=== PATIENT | female | born 1995 | race American Indian/Alaskan Native ===

== ENCOUNTER 2019-09-19 17:01 | Emergency (ER) | payer SELFPAY ==
--- NOTE | 2019-09-19 17:57 | Emergency Department Report ---
Blank Doc - Documentation Documentation: 24-year-old female that presents with abdominal pain, N/V, headache, dizzines, body aches, tachycardia. This initial assessment/diagnostic orders/clinical plan/treatment(s) is/are subject to change based on patient's health status, clinical progression and re- assessment by fellow clinical providers in the ED. Further treatment and workup at subsequent clinical providers discretion. Patient/guardians urged not to elope from the ED as their condition may be serious if not clinically assessed and managed. Initial orders include: 1- Patient sent to [facility] for further evaluation and treatment 2- labs 3- UA
[2019-09-19] MEDS ORDERED: ONDANSETRON 4 MG/2 ML INJ IV ONE (18:29)
[2019-09-19] MEDS ORDERED: SODIUM CHLORIDE 0.9% 1000 ML 1,000 ML IV ONE ×2 (18:29→20:31)
[2019-09-19] MEDS ORDERED: IBUPROFEN 800 MG TAB PO ONE (18:30)
--- NOTE | 2019-09-19 18:34 | Emergency Department Report ---
ED Fever HPI - General Chief Complaint: Headache Stated Complaint: STOMACH, VOMITTING Time Seen by Provider: 09/19/19 17:56 Source: patient Exam Limitations: no limitations - History of Present Illness Initial Comments: Ms. Shepherd is a 24-year-old female without significant past medical history who presents with 4 days of fever headache stomachache chills. She feels dehydrated. She denies cough. She denies shortness of breath. She denies sore throat. She works at [employer]. Unknown sick contacts. No recent travel. She lives with 3 children. Mild diffuse headache. Diffuse crampy lower abdominal pain left lower quadrant greater than right lower quadran t She is concerned for . August 07 first day of LMP. She has 3 previous pregnancies all vaginal delivery.. Timing/Duration: other (4 days) Fever Severity/Quality: greater than 102 F Associated Symptoms: abdominal pain, headache ED Review of Systems ROS: Stated complaint: STOMACH, VOMITTING Other details as noted in HPI Comment: All other systems reviewed and negative Constitutional: fever, malaise Respiratory: denies: cough, shortness of breath Cardiovascular: denies: chest pain Gastrointestinal: abdominal pain, nausea Neurological: headache ED Past Medical Hx - Past Medical History Previous Medical History?: No - Surgical History Past Surgical History?: Yes Additional Surgical History: Left leg surgery - Social History Smoking Status: Never Smoker Substance Use Type: None - Medications Home Medications: Home Medications Medication Instructions Recorded Confirmed Last Taken Type Nitrofurantoin Rabun/M-Cryst 100 mg PO Q12HR 10 Days #20 capsule 09/20/19 Unknown Rx [Macrobid CAP] Promethazine [Phenergan] 25 mg PO Q6HR PRN #10 tab 09/20/19 Unknown Rx ED Physical Exam - General Limitations: No Limitations General appearance: alert, in no apparent distress - Head Head exam: Present: atraumatic, normocephalic - Eye Eye exam: Present: normal appearance - ENT ENT exam: Present: normal orophraynx, mucous membranes moist - Neck Neck exam: Present: normal inspection, full ROM - Respiratory Respiratory exam: Present: normal lung sounds bilaterally. Absent: respiratory distress, wheezes, rales, rhonchi - Cardiovascular Cardiovascular Exam: Present: normal rhythm, tachycardia, normal heart sounds. Absent: systolic murmur, diastolic murmur, rubs, gallop - GI/Abdominal GI/Abdominal exam: Present: soft. Absent: distended, tenderness, guarding, rebound - Extremities Exam Extremities exam: Present: normal inspection - Neurological Exam Neurological exam: Present: alert, oriented X3 - Psychiatric Psychiatric exam: Present: normal affect, normal mood - Skin Skin exam: Present: warm, dry, intact, normal color. Absent: rash ED Course Vital Signs 09/19/19 09/19/19 09/19/19 17:11 17:57 18:19 Temperature 98.6 F 103.1 F H Pulse Rate 125 H 125 H Respiratory 18 Rate Blood Pressure 118/70 118/70 Blood Pressure [Right] O2 Sat by Pulse 100 100 100 Oximetry 09/19/19 09/19/19 09/19/19 18:20 18:30 18:45 Temperature 102.2 F H Pulse Rate 109 H 114 H Respiratory 30 H 34 H 26 H Rate Blood Pressure 123/78 118/66 Blood Pressure 114/76 [Right] O2 Sat by Pulse 98 100 99 Oximetry 09/19/19 09/19/19 09/19/19 18:50 19:00 19:16 Temperature Pulse Rate 112 H 110 H Respiratory 30 H 26 H 29 H Rate Blood Pressure 118/66 117/71 Blood Pressure [Right] O2 Sat by Pulse 100 98 Oximetry 09/19/19 09/19/19 09/19/19 19:30 19:46 20:00 Temperature Pulse Rate 104 H 106 H 105 H Respiratory 21 25 H 22 Rate Blood Pressure 105/61 105/61 105/57 Blood Pressure [Right] O2 Sat by Pulse 99 98 Oximetry 09/19/19 09/19/19 09/19/19 20:16 20:30 20:46 Temperature Pulse Rate 99 H 94 H 94 H Respiratory 35 H 29 H 27 H Rate Blood Pressure 105/57 100/55 100/55 Blood Pressure [Right] O2 Sat by Pulse 98 99 98 Oximetry 09/19/19 09/19/19 09/19/19 21:00 21:16 21:30 Temperature Pulse Rate 97 H 94 H 92 H Respiratory 19 27 H 26 H Rate Blood Pressure 100/62 100/62 100/54 Blood Pressure [Right] O2 Sat by Pulse 98 Oximetry 09/19/19 09/19/19 09/19/19 21:46 22:00 22:16 Temperature Pulse Rate 92 H 93 H 93 H Respiratory 25 H 25 H 29 H Rate Blood Pressure 100/54 90/55 90/55 Blood Pressure [Right] O2 Sat by Pulse 99 99 100 Oximetry 09/19/19 22:30 Temperature Pulse Rate 90 Respiratory 26 H Rate Blood Pressure 93/54 Blood Pressure [Right] O2 Sat by Pulse 100 Oximetry ED Medical Decision Making - Lab Data Result diagrams: 09/19/19 18:36 09/19/19 18:36 Laboratory Results - last 24 hr 09/19/19 09/19/19 09/19/19 18:20 18:36 18:36 WBC 15.6 H RBC 4.58 Hgb 11.7 Hct 34.6 MCV 76 L MCH 26 L MCHC 34 RDW 14.8 Plt Count 188 Rabun % (Auto) Brand Designer Add Manual Diff Complete Total Counted 100 Seg Neuts % (Manual) 85.0 H Band Neutrophils % 0 Lymphocytes % (Manual) 6.0 L Reactive Lymphs % (Man) 0 Monocytes % (Manual) 9.0 H Eosinophils % (Manual) 0 Basophils % (Manual) 0 Metamyelocytes % 0 Myelocytes % 0 Promyelocytes % 0 Blast Cells % 0 Nucleated RBC % Not Reportable Seg Neutrophils # Man 13.3 H Band Neutrophils # 0.0 Lymphocytes # (Manual) 0.9 L Abs React Lymphs (Man) 0.0 Monocytes # (Manual) 1.4 H Eosinophils # (Manual) 0.0 Basophils # (Manual) 0.0 Metamyelocytes # 0.0 Myelocytes # 0.0 Promyelocytes # 0.0 Blast Cells # 0.0 WBC Morphology Not Reportable Hypersegmented Neuts Not Reportable Hyposegmented Neuts Not Reportable Hypogranular Neuts Not Reportable Smudge Cells Not Reportable Toxic Granulation Not Reportable Toxic Vacuolation Not Reportable Dohle Bodies Not Reportable Pelger-Huet Anomaly Not Reportable Erum Rods Not Reportable Platelet Estimate Not Reportable Clumped Platelets Not Reportable Plt Clumps, EDTA Not Reportable Large Platelets Not Reportable Giant Platelets Not Reportable Platelet Satelliting Not Reportable Plt Morphology Comment Not Reportable RBC Morphology Not Reportable Dimorphic RBCs Not Reportable Polychromasia Not Reportable Hypochromasia 1+ Poikilocytosis Not Reportable Anisocytosis Not Reportable Microcytosis Not Reportable Macrocytosis Not Reportable Spherocytes Not Reportable Pappenheimer Bodies Not Reportable Sickle Cells Not Reportable Target Cells Not Reportable Tear Drop Cells Not Reportable Ovalocytes Not Reportable Helmet Cells Not Reportable Castillo-Kasota Bodies Not Reportable [place] Rings Not Reportable Kwesi Cells Not Reportable Bite Cells Not Reportable Crenated Cell Not Reportable Elliptocytes Not Reportable Acanthocytes (Spur) Not Reportable Rouleaux Not Reportable Hemoglobin C Crystals Not Reportable Schistocytes Not Reportable Malaria parasites Not Reportable Roberto Bodies Not Reportable Hem Pathologist Commnt No Sodium 126 L Potassium 3.6 Chloride 88.9 L Carbon Dioxide 21 L Anion Gap 20 BUN 7 Creatinine 0.9 Estimated GFR > 60 BUN/Creatinine Ratio 8 Glucose 120 H Calcium 9.3 Total Bilirubin 0.50 AST 28 ALT 26 Alkaline Phosphatase 78 Total Protein 7.5 Albumin 3.6 L Albumin/Globulin Ratio 0.9 Lipase 20 HCG, Quant Urine Color Yellow Urine Turbidity Cloudy Urine pH 6.0 Ur Specific [place] 1.006 Urine Protein 30 mg/dl Urine Glucose (UA) Neg Urine Ketones Neg Urine Blood Lg Urine Nitrite Neg Urine Bilirubin Neg Urine Urobilinogen < 2.0 Ur Leukocyte Esterase Lg Urine WBC (Auto) 128.0 H Urine RBC (Auto) 66.0 U Epithel Cells (Auto) 9.0 Urine Bacteria (Auto) 4+ Urine WBC Clumps 2+ Urine Mucus Few Urine Yeast (Budding) 2+ 09/19/19 19:52 WBC RBC Hgb Hct MCV MCH MCHC RDW Plt Count Rabun % (Auto) Add Manual Diff Total Counted Seg Neuts % (Manual) Band Neutrophils % Lymphocytes % (Manual) Reactive Lymphs % (Man) Monocytes % (Manual) Eosinophils % (Manual) Basophils % (Manual) Metamyelocytes % Myelocytes % Promyelocytes % Blast Cells % Nucleated RBC % Seg Neutrophils # Man Band Neutrophils # Lymphocytes # (Manual) Abs React Lymphs (Man) Monocytes # (Manual) Eosinophils # (Manual) Basophils # (Manual) Metamyelocytes # Myelocytes # Promyelocytes # Blast Cells # WBC Morphology Hypersegmented Neuts Hyposegmented Neuts Hypogranular Neuts Smudge Cells Toxic Granulation Toxic Vacuolation Dohle Bodies Pelger-Huet Anomaly Erum Rods Platelet Estimate Clumped Platelets Plt Clumps, EDTA Large Platelets Giant Platelets Platelet Satelliting Plt Morphology Comment RBC Morphology Dimorphic RBCs Polychromasia Hypochromasia Poikilocytosis Anisocytosis Microcytosis Macrocytosis Spherocytes Pappenheimer Bodies Sickle Cells Target Cells Tear Drop Cells Ovalocytes Helmet Cells Castillo-Kasota Bodies [place] Rings [place] Cells Bite Cells Crenated Cell Elliptocytes Acanthocytes (Spur) Rouleaux Hemoglobin C Crystals Schistocytes Malaria parasites Roberto Bodies Hem Pathologist Commnt Sodium Potassium Chloride Carbon Dioxide Anion Gap BUN Creatinine Estimated GFR BUN/Creatinine Ratio Glucose Calcium Total Bilirubin AST ALT Alkaline Phosphatase Total Protein Albumin Albumin/Globulin Ratio Lipase HCG, Quant 2901 H Urine Color Urine Turbidity Urine pH Ur Specific [place] Urine Protein Urine Glucose (UA) Urine Ketones Urine Blood Urine Nitrite Urine Bilirubin Urine Urobilinogen Ur Leukocyte Esterase Urine WBC (Auto) Urine RBC (Auto) U Epithel Cells (Auto) Urine Bacteria (Auto) Urine WBC Clumps Urine Mucus Urine Yeast (Budding) - Radiology Data Radiology results: report reviewed No IUP - Medical Decision Making Fever vomiting headache without cough or sore throat suspect influenza. Also has UTI with leukocytosis treated with IV Rocephin No abdominal tenderness, no vaginal discharge reported, has persistent left lower quadrant pain without IUP. Estimated gestational age's according to dates 6 weeks 2 days, HCG beyond discriminatory zone. I discussed case with Dr. Rodriguez rodding machine tender paper conservator. He recommended hCG repeat in 3 days. Patient understands return on for repeat blood test. Prescribed Macrobid for UTI, prescribed promethazine for nausea vomiting recommended [id number] Tylenol for pain Exam labs reveal dehydration hyponatremia hypochloremia. Suspect hypovolemic process with current presentation. Flulike or febrile illness with UTI complicated by likely morning sickness. Upon patient arrival she had several blood pressure readings which were normal. Subsequent blood pressure readings showed mild hypotension which is attributed to an appropriately sized cuff. Patient has an extremely long blood pressure cuff which is an appropriate for this size patient. Without cough I do not suspect COVID 19 infection Critical care attestation.: If time is entered above; I have spent that time in minutes in the direct care of this critically ill patient, excluding procedure time. ED Disposition Clinical Impression: UTI (urinary tract infection), Disposition: DC- TO HOME OR SELFCARE Is pt being admited?: No Does the pt Need Aspirin: No Condition: Stable Additional Instructions: Please return on to have a repeat blood hormone hCG test. Please return to the emergency department sooner if you develop severe abdominal pain vomiting or worsening symptoms. We need to ultimately rule out a tubal . Prescriptions: Nitrofurantoin Rabun/M-Cryst [Macrobid CAP] 100 mg PO Q12HR 10 Days #20 capsule Promethazine [Phenergan] 25 mg PO Q6HR PRN #10 tab PRN Reason: Nausea Referrals: BACILIO RODRIGUEZ MD [Staff Physician] - 3-5 Days
[2019-09-19 18:52] LABS: Bacteria,Urine 4+ /HPF (Negative); Bilirubin,Urine NEG (Negative); Blood,Urine LG (Negative); Color,Urine Yellow (Yellow); Mucus,Urine FEW /HPF; Urobilinogen,Urine < 2.0 mg/dL (<2.0)
[2019-09-19 18:58] LABS: Hematocrit 34.6 % (30.3-42.9); Hemoglobin 11.7 gm/dl (10.1-14.3); Mean Corpuscular HGB Conc 34 % (30-34); Mean Corpuscular Volume 76 fl (79-97); Platelet Count 188 K/mm3 (140-440); Red Blood Count 4.58 M/mm3 (3.65-5.03); Red Cell Distribution Width 14.8 % (13.2-15.2)
[2019-09-19 19:11] LABS: Alanine Aminotransferase 26 units/L (7-56); Albumin 3.6 g/dL (3.9-5); BUN/Creatinine Ratio 8; Blood Urea Nitrogen 7 mg/dL (7-17); Calcium 9.3 mg/dL (8.4-10.2); Hemolysis Index 3
[2019-09-19 19:48] LABS: Basophils % (Manual) 0 % (0.0-1.8); Eosinophils % (Manual) 0 % (0.0-4.3); Total Cells Counted 100
[2019-09-19 19:49] LABS: Hypochromasia 1+
[2019-09-19] MEDS ORDERED: cefTRIAXone/NS 2 GM/100 ML 2 GM/100 ML BAG IV ONE (21:14)
--- NOTE | 2019-09-19 22:22 | Ultrasound Report ---
ULTRASOUND OBSTETRIC INDICATION / CLINICAL INFORMATION: pelvic pain. TECHNIQUE: Transabdominal. COMPARISON: None available. FINDINGS: No IUP visualized. Uterus appears within normal limits measuring 11.0 x 4.6 x 5.[address] Endometrial str ipe measures 3 mm. ADNEXA: No significant abnormality. FREE FLUID: None. ADDITIONAL FINDINGS: None. IMPRESSION: 1. No IUP visualized. Follow-up beta-hCG and ultrasound recommended. Signer Name: Berto Mathew MD Signed: 09/19/2019 10:18 PM Workstation Name: [id number]
[2019-09-20 00:36] VITALS: BP 103/60
== END 2019-09-20 01:08 | disposition home or self-care (01) ==
LOC: ED 17:01
DX: O23.41 Unspecified infection of urinary tract in pregnancy, first trimester (principal); Z3A.01 Less than 8 weeks gestation of pregnancy; Z98.890 Other specified postprocedural states; Z79.899 Other long term (current) drug therapy
CPT/HCPCS: 36415; 76801; 80053; 81001; 83690; 84702; 85007; 85025; 87086; 96361; 96365; 96375; 99284; J0696; J2405; J7030